=== PATIENT | male | born 1940 | race Caucasian/White ===

== ENCOUNTER 2018-12-12 00:06 | Outpatient (CLI) | payer MEDICARE ==
[2018-12-12 14:26] LABS: #Basophils 0.1 thou/uL (0.0-0.2); #Eosinphils 0.1 thou/uL (0.0-0.7); #Lymphocytes 1.3 thou/uL (1.20-3.40); #Monocytes 0.5 thou/uL (0.11-0.59); %Basophils 1.2 % (0.0-1.0); %Eosinophils 2.1 % (0.0-10.0); %Lymphocytes 21.7 % (21.0-51.0); %Monocytes 8.1 % (0.0-10.0); %Neutrophils 66.9 % (42.0-75.0); Hemoglobin 14.8 g/dL (14.0-18.0); Mean Corpuscular HGB CONC 34.1 g/dL (32.0-36.0); Mean Corpuscular Hemoglobin 33.9 pg (27.0-31.0); Mean Corpuscular Volume 99.3 fL (78.0-98.0); Mean Platelet Volume 7.6 fL (7.4-10.4); Platelet Count 171 thou/uL (130-400); RBC Distribution Width 11.1 % (11.5-14.5); Red Blood Cell (RBC) Count 4.37 mill/uL (4.70-6.10)
[2018-12-12 14:33] LABS: Bilirubin Negative (Negative); Blood, Urine Negative (Negative); Glucose, Urine (Dipstick) Negative (Negative); Leukocyte Negative (Negative); Nitrite Negative (Negative); Protein, Urine (Dipstick) Negative (Neg-Trace); Specific Gravity, Urine 1.012 (1.002-1.036); Urobilinogen 0.2 mg/dL (0.2-1.0); pH, Urine 5.5 (5.0-9.0)
[2018-12-12 14:35] LABS: Bacteria/HPF None Seen HPF (None Seen); Hyaline Casts/LPF 0-3 HYALINE CAST LPF (0-3 Hyaline); RBC/HPF 0-3 HPF (0-3); Squamous Epithelial None Seen HPF (0-3); WBC/HPF None Seen HPF (0-3)
[2018-12-12 14:46] LABS: Anion Gap 12 mmol/L (10-20); BUN (Urea Nitrogen) 19 mg/dL (8.4-25.7); Calc. Creatinine Clearance 0 mL/min (70-130); Calcium 9.8 mg/dL (7.8-10.44); Carbon Dioxide 27 mmol/L (23-31); Chloride 101 mmol/L (98-107); Clarity Clear (Clear); Estimated GFR-MDRD 88; Glucose 107 mg/dL (83-110); Potassium 4.3 mmol/L (3.5-5.1); Sodium 136 mmol/L (136-145)
--- NOTE | 2018-12-14 13:49 | EKG ---
Test Reason : Blood Pressure : / mmHG Vent. Rate : 083 BPM Atrial Rate : 083 BPM P-R Int : 210 ms QRS Dur : 086 ms QT Int : 382 ms P-R-T Axes : 064 021 054 degrees QTc Int : 448 ms Sinus rhythm with 1st degree A-V block Low voltage QRS Borderline ECG No previous ECGs available Baseline artifact Confirmed by DR. Pierre JARRELL ([id number]) on 12/14/2018 1:49:10 PM Referred By: ARETHA Confirmed By:DR. Pierre JARRELL
== END 2018-12-12 00:07 | disposition home or self-care (01) ==
LOC: LABBT 00:06
PROVIDERS: ATTEND Orthopaedic Surgery
DX: Z01.818 Encounter for other preprocedural examination (principal); M17.11 Unilateral primary osteoarthritis, right knee
CPT/HCPCS: 80048; 81001; 85025; 87081; 93005; 93010

== ENCOUNTER 2018-12-23 06:53 | Day surgery (SDC) | payer MEDICARE ==
--- NOTE | 2018-12-19 09:29 | HP ---
HISTORY OF PRESENT ILLNESS: The patient is a 78-year-old male with a long history of progressive degenerative arthritis of both knees, right symptomatic more than the left. He has had no injury. He has had progressive symptoms despite rest, restriction of activities, anti-inflammatory medications, and several cortisone injections. The pain is now interfering with day-to-day activities including walking, getting dressed, and sleeping. PAST MEDICAL HISTORY: The patient is otherwise in good health. He is currently retired. He has a history of hypertension and hyperlipidemia. CURRENT MEDICATIONS: Include: 1. Fish oil. 2. Multivitamins. 3. Aspirin. 4. Glucosamine. 5. Flomax. 6. Olmesartan. 7. Pravastatin. ALLERGIES: HE IS ALLERGIC TO TETANUS. FAMILY HISTORY: Otherwise, unremarkable. SOCIAL HISTORY: Otherwise, unremarkable. REVIEW OF SYSTEMS: Otherwise, unremarkable. PHYSICAL EXAMINATION: GENERAL: Reveals a healthy male. HEENT: Unremarkable. NECK: Supple. CHEST: Clear. HEART: Regular rate and rhythm. ABDOMEN: Soft, nontender. RECTAL: Deferred. GENITAL: Deferred. EXTREMITIES: Pertinent findings related to his knees. There is a mild varus deformity bilaterally, right slightly greater than the left. There is tenderness and crepitus over the medial joint line bilaterally, right greater than left. Range of motion is 0 to 120 degrees bilaterally. There is no instability of either knee. Distal pulses 1+. Neurovascular exam is intact. There is no pain with range of motion of either hip. DIAGNOSTIC STUDIES: X-rays of both knees reveal [id number] collapse medially, worse on the right. There are also osteocartilaginous posterior loose bodies on the right, and there is progression of degenerative arthritis from previous x-rays. IMPRESSION: 1. Degenerative arthritis of both knees, right symptomatic more than left. 2. History of hypertension. PLAN: Right total knee replacement. May ultimately require a staged left total knee replacement. The nature of the surgery, length of recovery, and potential complications such as infection, loss of motion, incomplete relief, delayed wound healing, neurovascular injury, thromboembolic phenomena, possible transfusion, and need for revision have been discussed in detail with the patient and his . Job ID: [id number]
[2018-12-23] MEDS ORDERED: Tranexamic Acid 1,000 MG/10 ML VIAL ONE ×2 (08:08→11:27)
[2018-12-23] MEDS ORDERED: Sodium Chloride 0.9% 100 ML ONE (08:08)
[2018-12-23] MEDS ORDERED: Vancomycin HCl 1.5 GM in Sodium Chloride 0.9% 250 ML 300 ML IVPB SCH ×3 (08:15→21:00)
[2018-12-23] MEDS ORDERED: Midazolam HCl 2 mg/2 ml Vial ONE ×2 (08:17→09:32)
[2018-12-23] MEDS ORDERED: Fentanyl 100 MCG/2 ML VIAL ONE ×2 (08:17→09:32)
[2018-12-23] MEDS ORDERED: Ondansetron PF 4 MG/2 ML Vial IVP PRN ×2 (08:51→12:09)
[2018-12-23] MEDS ORDERED: Zolpidem Tartrate 5 MG TAB PO PRN ×2 (08:51→12:09)
[2018-12-23] MEDS ORDERED: Ropivacaine HCl/PF 250 ML in Premix Bag 1 BAG NERVE BLCK SCH (08:51)
[2018-12-23] MEDS ORDERED: HYDROcodone/Acetaminophen 10/325 mg Tablet PO PRN ×3 (08:51→12:09)
[2018-12-23] MEDS ORDERED: traMADol HCl 50 MG TAB PO PRN ×3 (08:51→12:09)
[2018-12-23] MEDS ORDERED: Promethazine HCl 25 MG/ML VIAL IM PRN ×2 (08:51→10:28)
[2018-12-23] MEDS ORDERED: Fentanyl 100 MCG/2 ML VIAL SLOW IVP PRN ×3 (08:52→12:09)
[2018-12-23] MEDS: Multivitamin W/ Minerals 1 TAB PO SCH (09:00)
[2018-12-23] MEDS: Losartan 25 MG TAB PO SCH (09:00)
[2018-12-23] MEDS ORDERED: Promethazine HCl 25 MG/ML VIAL SLOW IVP PRN ×2 (10:28→12:09)
[2018-12-23] MEDS ORDERED: Ondansetron HCl/PF 4 MG/2 ML Vial IVP PRN (10:28)
[2018-12-23] MEDS ORDERED: Bupivacaine/Epinephrine 0.25% 30 ML VIAL ONE (10:34)
[2018-12-23] MEDS ORDERED: Tranexamic Acid 1,000 MG in Sodium Chloride 0.9% 100 ML IVPB SCH ×2 (11:30→12:09)
--- NOTE | 2018-12-23 11:54 | RAD ---
EXAM: 2 views of the right knee HISTORY: Knee pain COMPARISON: None FINDINGS: . The patient is status post right knee arthroplasty without apparent hardware lucency or f racture. Air in the soft tissues may be from recent surgery. There are ossifications posterior to the knee which may or may not reside within the knee joint. IMPRESSION: Status post right knee arthroplasty without evidence of complication.
[2018-12-23] MEDS ORDERED: Ketorolac Tromethamine 30 MG/ML VIAL IVP SCH (12:00)
[2018-12-23] MEDS ORDERED: Senokot S 8.6-50 MG TAB PO SCH (12:09)
[2018-12-23] MEDS ORDERED: Non-Formulary Item 1 EACH (Losartan Potassium [Cozaar] 50 MG) PO SCH (12:09)
[2018-12-23] MEDS ORDERED: Non-Formulary Item 1 EACH (Omega-3 Fatty Acids/Fish Oil [Fish Oil 1,000 Mg Capsule] 1 CAP PO SCH (12:09)
[2018-12-23] MEDS ORDERED: Aspirin 81 mg Enteric Coated Tablet PO SCH (12:09)
[2018-12-23] MEDS ORDERED: Non-Formulary Item 1 EACH (Ubidecarenone [Coq-10] 100 MG) PO SCH (12:09)
[2018-12-23] MEDS ORDERED: diphenhydrAMINE 25 MG CAP PO PRN (12:09)
[2018-12-23] MEDS ORDERED: Acetaminophen 325 MG TAB PO PRN (12:09)
--- NOTE | 2018-12-23 12:33 | OP ---
DATE OF PROCEDURE: 12/23/2018 [employer]ER: Amari Ivey PA-C ANESTHESIA: General plus adductor canal and sciatic nerve blocks. PREOPERATIVE DIAGNOSIS: Degenerative arthritis, right knee. POSTOPERATIVE DIAGNOSIS: Degenerative arthritis, right knee. PROCEDURE PERFORMED: 1. Right total knee replacement with computer-assisted navigation with cemented Rico Triathlon components (#6 femoral component, #6 primary tibial base plate with 11 mm CS plastic insert, and A35 all plastic patellar component). DESCRIPTION OF PROCEDURE: After satisfactory anesthesia was induced in supine position, sequential compression device was placed on the left leg throughout the procedure. The right leg was then prepped and draped in a routine sterile fashion. The leg was elevated and exsanguinated with an Esmarch bandage and the tourniquet inflated to 300 mmHg. A gently curved medial parapatellar incision was made, carried down through the subcutaneous tissues and bleeding points controlled with Bovie cautery. Medial parapatellar arthrotomy was performed of the patella, this was carried laterally and portions of the fat pad were excised for exposure. There was marked tricompartmental degenerative arthritis in the knee, especially medially with large areas of exposed bone. Meniscal remnants and osteophytes were removed. Using the [employer] pinless navigation system and the appropriate guides, the distal femoral and proximal tibial articular surfaces were excised with an oscillating saw that would accept the trial components. It was felt a #6 femoral component and #6 tibial base plate with an 11 mm CS plastic insert gave appropriate size, fit, stability, and correction of the preoperative deformity. The patellar articular surface was excised to accept all plastic A35 patellar component. There was good range of motion and good patellar tracking. The trial components were removed. The knee was copiously irrigated with pulsatile lavage. The bony surface was thoroughly cleaned and dried. The permanent components were then cemented in a single stage using one package of cement premixed with 1 g of tobramycin powder. Excess cement was removed. There was again good fit and stability of the components. The knee was again copiously irrigated. The skin was injected with 30 mL of 0.25% Marcaine with epinephrine. The medial retinaculum and quadriceps mechanism was closed with interrupted #2 Vicryl and a running #2 Quill. Subcutaneous tissues were closed with a running 0 Quill suture and the skin closed with a running subcuticular 3-0 Monoderm and SurgiSeal skin adhesive. A sterile bulky compressive dressing was applied and the tourniquet deflated after 72 minutes. The foot promptly pinked up and sequential compression devices were applied to his operated leg. He was awakened and taken to recovery in stable condition. There were no apparent intraoperative complications. ESTIMATED BLOOD LOSS: Less than 100 mL. Job ID: [id number]
[2018-12-23 12:49] VITALS: BMI 27.1
[2018-12-23] MEDS: Ketorolac Tromethamine 30 MG/ML VIAL IVP SCH ×3 (14:33→23:55)
[2018-12-23] MEDS ORDERED: Ropivacaine 0.5% HCl/PF (150 MG/30 ML VIAL) ONE (15:19)
[2018-12-23] MEDS ORDERED: Ropivacaine 0.2% HCl/PF (40 MG/20 ML VIAL) ONE (15:19)
[2018-12-23] MEDS: Tamsulosin HCl 0.4 MG CAP PO SCH (15:42)
[2018-12-23] MEDS ORDERED: Ondansetron PF 4 MG/2 ML Vial ONE (16:13)
[2018-12-23] MEDS ORDERED: Lidocaine 1% PF 5 ML VIAL ONE (16:13)
[2018-12-23] MEDS ORDERED: Ketorolac Tromethamine 30 MG/ML VIAL ONE (16:13)
[2018-12-23] MEDS ORDERED: ePHEDrine 50 MG/ML VIAL ONE (16:13)
[2018-12-23] MEDS: CEFAZOLIN 2 GM in Premix Bag 1 BAG IVPB SCH ×2 (16:13→22:16)
[2018-12-23] MEDS ORDERED: PROPOFOL 200 MG/20 ML VIAL ONE (16:13)
[2018-12-23] MEDS ORDERED: Metoclopramide HCl 10 MG/2 ML VIAL ONE (16:13)
[2018-12-23] MEDS: Sodium Chloride 0.9% 1,000 ML IV SCH ×2 (16:21→21:38)
[2018-12-23] MEDS ORDERED: Pravastatin Sodium 20 MG TAB PO SCH (21:00)
[2018-12-23] MEDS: Aspirin 81 mg Enteric Coated Tablet PO SCH (21:36)
[2018-12-23] MEDS: Senokot S 8.6-50 MG TAB PO SCH (21:36)
[2018-12-24 04:40] LABS: Hemoglobin 12.6 g/dL (14.0-18.0); Mean Corpuscular HGB CONC 35.1 g/dL (32.0-36.0); Mean Corpuscular Hemoglobin 34.4 pg (27.0-31.0); Mean Platelet Volume 7.3 fL (7.4-10.4); Platelet Count 209 thou/uL (130-400); RBC Distribution Width 10.8 % (11.5-14.5); Red Blood Cell (RBC) Count 3.66 mill/uL (4.70-6.10); White Blood Cell (WBC) Count 11.7 thou/uL (4.8-10.8)
[2018-12-24] MEDS: Ketorolac Tromethamine 30 MG/ML VIAL IVP SCH ×2 (05:19→11:21)
[2018-12-24] MEDS: Sodium Chloride 0.9% 1,000 ML IV SCH (07:38)
[2018-12-24] MEDS: Losartan 25 MG TAB PO SCH (08:12)
[2018-12-24] MEDS: Senokot S 8.6-50 MG TAB PO SCH (08:12)
[2018-12-24] MEDS: Multivitamin W/ Minerals 1 TAB PO SCH (08:12)
[2018-12-24] MEDS: Aspirin 81 mg Enteric Coated Tablet PO SCH (08:13)
[2018-12-24] MEDS: Tamsulosin HCl 0.4 MG CAP PO SCH (08:13)
[2018-12-24] MEDS: HYDROcodone/Acetaminophen 10/325 mg Tablet PO PRN ×2 (08:20→12:24)
[2018-12-24] MEDS ORDERED: Losartan 25 MG TAB PO SCH ×2 (08:32→08:33)
[2018-12-24] MEDS ORDERED: Ubidecarenone 50 MG CAP PO SCH (09:00)
[2018-12-24] MEDS ORDERED: Fish Oil 1,000 MG CAP PO SCH (09:00)
--- NOTE | 2018-12-24 10:05 | PRG ---
DATE OF SERVICE: 12/24/2018 SUBJECTIVE: Abdoulaye is a 78-year-old white male, who is postop day 1 from right total knee arthroplasty. He is comfortable today and is anticipating discharge home today. He has had very little pain since surgery yesterday and done well overnight. OBJECTIVE: VITAL SIGNS: Temperature 97.3, pulse 91, respiratory rate is 20, blood pressure is 117/64. GENERAL: He is alert and oriented to person, place, time, situation, grossly nonfocal. Appropriate with examiner, in good spirits. EXTREMITIES: His incision is clean. It has been re-dressed. No erythema. No strike through and he is neurovascularly intact in both lower extremities. LABORATORY DATA: Hemoglobin and hematocrit 12.6 and 35.8. IMPRESSION: A 78-year-old male, postop day #1 right total knee arthroplasty, doing very well. PLAN: Possible discharge today. Recheck this evening. Job ID: [id number]
[2018-12-24 15:02] VITALS: BP 134/70; TEMP 97.7
== END 2018-12-24 15:50 | disposition home or self-care (01) ==
LOC: SDC 06:53 → SJJU 12:15 → SDC 12-24 15:50
PROVIDERS: ATTEND Orthopaedic Surgery
PROC: 0SRC0J9 Replacement of Right Knee Joint with Synthetic Substitute, Cemented, Open Approach (ICD-10-PCS; principal; 2018-12-23)
PROC: 8E0YXBZ Computer Assisted Procedure of Lower Extremity (ICD-10-PCS; 2018-12-23)
PROC: 3E0T3BZ Introduction of Anesthetic Agent into Peripheral Nerves and Plexi, Percutaneous Approach (ICD-10-PCS; 2018-12-23)
DX: M17.0 Bilateral primary osteoarthritis of knee (principal); G89.18 Other acute postprocedural pain; I10 Essential (primary) hypertension; E78.5 Hyperlipidemia, unspecified; Z87.891 Personal history of nicotine dependence; Z88.7 Allergy status to serum and vaccine; Z91.018 Allergy to other foods; Z79.899 Other long term (current) drug therapy
CPT/HCPCS: 20985; 27447; 64445; 64447; 73560; 85027; 86850; 86900; 86901; 97116 ×2; 97139 ×2; 97150; 97530; 98961; C1713; C1776; 36415; J0131; J0690; J1885; J2001; J2250; J2405; J2704; J2765; J2795; J3010; J3370; J3490; J7050